=== PATIENT | male | born 2000 | race Caucasian/White ===

== ENCOUNTER 2023-08-18 17:50 | Emergency (ER) | payer BC | END 2023-08-18 20:00 | disposition home or self-care (01) | LOC: JD.ED 17:50 | DX: S03.40XA Sprain of jaw, unspecified side, initial encounter (principal); Z79.899 Other long term (current) drug therapy; Y04.0XXA Assault by unarmed brawl or fight, initial encounter; Y92.59 Other trade areas as the place of occurrence of the external cause | CPT/HCPCS: 70450; 70450-26; 70486; 70486-26; 99282; 99284 ==

== ENCOUNTER 2023-10-15 09:42 | Emergency (ER) | payer BC ==
[2023-10-15] MEDS: Ondansetron 4 MG/2 ML SDV IVPUSH ONE (10:06)
[2023-10-15] MEDS: Sodium Chloride 0.9% 1,000 ML IV STA (10:06)
[2023-10-15 10:07] LABS: HEMATOCRIT 43.6 % (42.0-52.0); HEMOGLOBIN 15.6 gm/dl (14.0-18.0); MEAN CORPUSCULAR HGB CONC 35.8 g/dl (32.0-36.0); MEAN CORPUSCULAR VOLUME 86.5 fl (83.0-99.0); MEAN PLATELET VOLUME 9.6 fl (9.4-12.4); PLATELET COUNT,PLT 288 K/mm3 (150-400); RED BLOOD CELL COUNT 5.04 M/mm3 (4.52-5.90); WHITE BLOOD CELL COUNT,WBC 8.58 K/mm3 (3.9-11.3)
[2023-10-15 10:33] LABS: A/G RATIO 1.5 (1-2); ALBUMIN 4.6 g/dl (3.4-5.0); ANION GAP 15.5 (5-15); BAND PERCENT MAN 0 % (0-10); BASOPHILS PERCENT MAN 1 (0.2-1.2); BILIRUBIN TOTAL 0.4 mg/dL (0.2-1.0); CALCIUM 9.3 mg/dL (8.5-10.1); EOSINOPHILS PERCENT MAN 0 % (0.8-7.0); EST CRCL DRUG DOSING (CG) 121.62 mL/min; ETHANOL BLOOD MEDICAL 0.04 gm% (0.00); LYMPHOCYTES % ATYPICAL MANUAL 0 %; LYMPHOCYTES PERCENT MAN 26 % (20-40); MONOCYTES PERCENT MAN 5 % (2-10); POTASSIUM,K 3.5 mEq/L (3.5-5.1); PROTEIN TOTAL,TP 7.6 g/dl (6.4-8.2); TSH 1.201 uIU/mL (0.358-3.74)
[2023-10-15 10:34] LABS: PLATELET COUNT ESTIMATE ADEQUATE; TOXIC GRANULATION 1+ SLIGHT
[2023-10-15 11:20] LABS: BARBITURATE SCREEN,URINE NEGATIVE (CUTOFF=200); BENZODIAZEPINES SCREEN,URINE NEGATIVE (CUTOFF=150); BUPRENORPHINE SCREEN,URINE NEGATIVE (CUTOFF=10); METHADONE SCREEN, URINE NEGATIVE (CUT0FF=200); METHAMPHETAMINES SCREEN, URINE NEGATIVE (CUTOFF=500); OXYCODONE SCREEN,URINE NEGATIVE (CUT0FF=100); THC SCREEN,URINE 20 NG/ML NEGATIVE (CUTOFF=50)
[2023-10-15 11:22] LABS: AMPHETAMINES SCREEN, URINE NEGATIVE (CUTOFF=500)
== END 2023-10-15 11:55 | disposition home or self-care (01) ==
LOC: JD.ED 09:42
DX: F14.10 Cocaine abuse, uncomplicated (principal); F10.10 Alcohol abuse, uncomplicated; F41.9 Anxiety disorder, unspecified; R07.89 Other chest pain; F17.210 Nicotine dependence, cigarettes, uncomplicated; Y90.9 Presence of alcohol in blood, level not specified
CPT/HCPCS: 36415; 71046; 71046-26; 80053; 80143; 80179; 80306; 80307; 84443; 84484; 85007; 85027; 85379; 93005; 96361; 96374; 99285-25; J2405; J7030